=== PATIENT | male | born 2000 | race Caucasian/White ===

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

== ENCOUNTER 2021-07-24 23:08 | Emergency (ER) | payer BC ==
[2021-07-24] MEDS ORDERED: Ondansetron ODT 4 MG TAB ONE (23:31)
[2021-07-24] MEDS ORDERED: Dicyclomine 20 MG/2 ML VIAL ONE (23:31)
[2021-07-25 00:54] LABS: Bilirubin Negative (Negative); Blood, Urine Negative (Negative); Clarity Clear (Clear); Glucose, Urine (Dipstick) Negative (Negative); Ketone, Urine 40 mg/dL (Negative); Leukocyte Negative (Negative); Nitrite Negative (Negative); Protein, Urine (Dipstick) Trace mg/dL (Neg-Trace); pH, Urine 7.5 (5.0-9.0)
[2021-07-25] MEDS ORDERED: Simethicone Chewable 80 MG TAB ONE (01:28)
[2021-07-25] MEDS ORDERED: Prochlorperazine 10 MG/2 ML VIAL ONE (01:28)
== END 2021-07-25 02:23 | disposition home or self-care (01) ==
LOC: MADERS 23:08
DX: R11.2 Nausea with vomiting, unspecified (principal); R10.84 Generalized abdominal pain; R10.33 Periumbilical pain
CPT/HCPCS: 81003; 94760; 96372; 99284; J0500; J0780; Q0162